=== PATIENT | female | born 1945 | race Two or more races ===

== ENCOUNTER 2016-05-05 14:37 | Observation (INO) | payer OTHER, MEDICARE ==
[2016-05-05] MEDS ORDERED: ALBUTEROL 3 ML DEYVIAL ONE (14:54)
[2016-05-05] MEDS ORDERED: ONDANSETRON 4 MG/2 ML VIAL ONE (14:54)
--- NOTE | 2016-05-05 14:54 | EDPHY ---
H & P Time Seen by Provider: 05/05/16 14:52 HPI/ROS: CHIEF COMPLAINT: Diarrhea, abdominal pain, vomiting. HISTORY OF PRESENT ILLNESS: The patient is a 70-year-old female who presents with diarrhea and abdominal pain. The diarrhea onset last night and subsided. This morning it returned with crampy abdominal pain and she also began to vomit. She became short of breath when the vomiting started. She admits associated fatigue. She denies congestion, rhinorrhea, fever. She has no previous pulmonary history. She denies chest pain, peripheral edema, recent antibiotic use, or other complaints. She was hypoxic at 83% on arrival. She took Zofran and Imodium at home to no effect. REVIEW OF SYSTEMS: A complete 10-point review of systems was performed and is negative except for those items mentioned in the HPI. Past Medical/Surgical History: Breast cancer/lumpectomy, knee surgery, hypertension, anxiety. Social History: Nonsmoker, currently moving houses. Smoking Status: Never smoked Physical Exam: General Appearance: Alert, no distress Eyes: Pupils equal and round, no conjunctival pallor or injection ENT, Mouth: Mucous membranes moist Neck: Normal inspection Respiratory: Lungs are clear to auscultation Cardiovascular: Regular rate and rhythm Gastrointestinal: Abdomen is soft and non-tender Neurological: A&O, nonfocal, normal gait Skin: Warm and dry, no rash Extremities: Nontender, no pedal edema Psychiatric: Mood and affect normal Constitutional: Initial Vital Signs Temperature (C) 36.4 C 05/05/16 14:57 Heart Rate 81 05/05/16 14:57 Respiratory Rate 16 05/05/16 14:57 Blood Pressure 138/76 H 05/05/16 14:57 O2 Sat (%) 96 05/05/16 14:57 O2 Delivery Mode Nasal Cannula O2 (L/minute) 2 Allergies/Adverse Reactions: codeine [Codeine] Allergy (Verified 08/20/11 16:44) erythromycin base [Erythromycin Base] Allergy (Verified 08/20/11 16:44) PLASTIC TAPE Allergy (Uncoded 08/20/11 16:44) Home Medications: Medication Instructions Recorded *Pharmacy Completed 08/20/11 08/20/11 Calcium Citrate [Citracal (OTC)] 600 mg PO DAILY 08/20/11 Cholecalciferol (Vitamin D3) 1,000 units PO DAILY 08/20/11 [Vitamin D] Herbals/Supplements 1 ea PO DAILY 08/20/11 LORazepam [Ativan 1 mg (RX)] 0.5 - 1 mg PO DAILY PRN 08/20/11 Lisinopril/Hydrochlorothiazide 1 each PO DAILY 08/20/11 [Lisinopril-Hctz 20-25 mg Tab] [place]-3 Fatty Acids/Fish Oil [Fish 1 each PO DAILY 08/20/11 Oil 1,000 mg Capsule] Sertraline HCl [Zoloft 100mg (RX)] 100 mg PO DAILY 08/20/11 Reconciled 08/21/11 Breast Ca Medicine 03/05/16 LORazepam [Ativan] 1 mg PO Q6-8PRN PRN #10 tab 03/05/16 Medical Decision Making - Diagnostics EKG Interpretation: EKG interpreted by me reveals normal sinus rhythm. Left anterior fascicular block. Borderline R wave progression, anterior leads. Diffuse T-wave flattening. Interpretation: Abnormal EKG. Imaging: Chest x-ray reviewed by me reveals no acute cardiopulmonary disease. Study: CTA of the chest. Indication: Elevated d-dimer, SOB. Results: No acute process. The study was read by the staff radiologist. ED Course/Re-evaluation: This patient presents with vomiting, diarrhea and shortness of breath. An IV was established and labs ordered. Chest x-ray, EKG ordered. Patient's chest x-ray is negative as interpreted by me. Her d-dimer is elevated and she remains hypoxic with oxygen saturation of 82% on room air, so a chest CTA was ordered. CT scan results discussed with the patient., unclear etiology hypoxia, still a concern for pulmonary embolism not visualized on CT scan. For this reason bilateral lower extremity ultrasounds were ordered. She may have aspirated the during an episode of vomiting, causing hypoxia as well. Any case, she will need to be admitted for acute hypoxia and dyspnea. 1724: Consulted with Dr. Montiel, hospitalist. He accepts admission to [facility]. Differential Diagnosis: Differential diagnosis includes though it is not limited to pneumonia, pulmonary embolism, acute coronary syndrome, empyema, bronchospasm. - Data Points Laboratory Results: Laboratory Results 05/05/16 15:05 05/05/16 15:05 05/05/16 05/05/16 05/05/16 15:05 15:05 15:05 WBC RBC Hgb Hct MCV MCH MCHC RDW Plt Count MPV Neut % (Auto) Lymph % (Auto) [place] % (Auto) Eos % (Auto) Baso % (Auto) Nucleat RBC Rel Count Absolute Neuts (auto) Absolute Lymphs (auto) Absolute Monos (auto) Absolute Eos (auto) Absolute Basos (auto) Absolute Nucleated RBC Immature Gran % Immature Gran # D-Dimer 1.38 ug/mLFEU H ug/mLFEU (0.00-0.50) Sodium Potassium Chloride Carbon Dioxide Anion Gap BUN Creatinine Estimated GFR Glucose Calcium Troponin I < 0.012 ng/mL ng/mL (0-0.034) NT-Pro-B Natriuret Pep 56 pg/mL pg/mL (0-125) Influenza A & B (PCR) NEGATIVE FOR FLU (NEGATIVE) 05/05/16 02 15:05 15:05 WBC 7.86 10^3/uL 10^3/uL (3.80-9.50) RBC 4.46 10^6/uL 10^6/uL (4.18-5.33) Hgb 13.7 g/dL g/dL (12.6-16.3) Hct 41.0 % % (38.0-47.0) MCV 91.9 fL fL (81.5-99.8) MCH 30.7 pg pg (27.9-34.1) MCHC 33.4 g/dL g/dL (32.4-36.7) RDW 13.5 % % (11.5-15.2) Plt Count 205 10^3/uL 10^3/uL (150-400) MPV 10.0 fL fL (8.7-11.7) Neut % (Auto) 89.2 % H % (39.3-74.2) Lymph % (Auto) 5.1 % L % (15.0-45.0) [place] % (Auto) 4.3 % L % (4.5-13.0) Eos % (Auto) 0.8 % % (0.6-7.6) Baso % (Auto) 0.3 % % (0.3-1.7) Nucleat RBC Rel Count 0.0 % % (0.0-0.2) Absolute Neuts (auto) 7.02 10^3/uL H 10^3/uL (1.70-6.50) Absolute Lymphs (auto) 0.40 10^3/uL L 10^3/uL (1.00-3.00) Absolute Monos (auto) 0.34 10^3/uL 10^3/uL (0.30-0.80) Absolute Eos (auto) 0.06 10^3/uL 10^3/uL (0.03-0.40) Absolute Basos (auto) 0.02 10^3/uL 10^3/uL (0.02-0.10) Absolute Nucleated RBC 0.00 10^3/uL 10^3/uL (0-0.01) Immature Gran % 0.3 % % (0.0-1.1) Immature Gran # 0.02 10^3/uL 10^3/uL (0.00-0.10) D-Dimer Sodium 140 mEq/L mEq/L (134-144) Potassium 4.0 mEq/L mEq/L (3.5-5.2) Chloride 106 mEq/L mEq/L (97-110) Carbon Dioxide 23 mEq/l mEq/l (22-31) Anion Gap 11 mEq/L mEq/L (8-16) BUN 25 mg/dL H mg/dL (7-23) Creatinine 0.9 mg/dL mg/dL (0.6-1.0) Estimated GFR > 60 Glucose 118 mg/dL H mg/dL (70-100) Calcium 9.6 mg/dL mg/dL (8.5-10.4) Troponin I NT-Pro-B Natriuret Pep Influenza A & B (PCR) Medications Given: Discontinued Medications Sodium Chloride (Ns) 1,000 mls @ 0 mls/hr IV ONCE ONE PRN Reason: Wide Open Stop: 05/05/16 15:22 Last Admin: 05/05/16 15:26 Dose: 1,000 mls Ondansetron HCl (Zofran) 4 mg IVP EDNOW ONE Stop: 05/05/16 15:22 Last Admin: 05/05/16 15:26 Dose: 4 mg Departure - Departure Disposition: [facility] Clinical Impression: Shortness of breath, Hypoxia Diarrhea Qualifiers: Diarrhea type: unspecified type Qualified Code(s): R19.7 - Diarrhea, unspecified Condition: Fair Referrals: Savanah Manley MD [Primary Care Provider] - As per Instructions Report Scribed for: Sunshine Myers Report Scribed by: Merritt Medrano Date of Report: 05/05/16 Time of Report: 14:54 Physician Review and Approval Statement: 05/05/16 14:54 Portions of this note were transcribed by a medical lead. I personally performed a history, physical exam, medical decision making, and confirmed accuracy of information the transcribed note.
--- NOTE | 2016-05-05 15:02 | CPEKG ---
Heart Rate: 81 RR Interval: 741 P-R Interval: 164 QRSD Interval: 90 QT Interval: 400 QTC Interval: 465 P [place]: 20 QRS [place]: -45 T Wave [place]: -16 EKG Severity - ABNORMAL ECG - EKG Impression: SINUS RHYTHM EKG Impression: LEFT ANTERIOR FASCICULAR BLOCK EKG Impression: BORDERLINE R WAVE PROGRESSION, ANTERIOR LEADS EKG Impression: Diffuse T-wave changes Electronically Signed By: Sunshine Myers 05-May-2016 20:41:45
[2016-05-05] MEDS ORDERED: NS 1,000 ML IV ONE (15:21)
[2016-05-05] MEDS ORDERED: ONDANSETRON 4 MG/2 ML VIAL IVP ONE (15:21)
[2016-05-05 15:26] LABS: % IMMATURE GRANULYOCYTES 0.3 % (0.0-1.1); ABSOLUTE IMMATURE GRANULOCYTES 0.02 10^3/uL (0.00-0.10); ADD DIFF? NO; ADD MORPH? NO; ADD SCAN? NO; ATYPICAL LYMPHOCYTE FLAG 0 (0-99); FRAGMENT RBC FLAG 0 (0-99); HEMOGLOBIN 13.7 g/dL (12.6-16.3); LEFT SHIFT FLG 0 (0-99); LIPEMIA HEMOLYSIS FLAG 80 (0-99); MEAN CELL HEMOGLOBIN 30.7 pg (27.9-34.1); MEAN CELL HEMOGLOBIN CONCENTR. 33.4 g/dL (32.4-36.7); MEAN CELL VOLUME 91.9 fL (81.5-99.8); PLATELET CLUMPS FLAG 0 (0-99); PLATELET COUNT 205 10^3/uL (150-400); RED BLOOD CELL COUNT 4.46 10^6/uL (4.18-5.33); RED CELL DISTRIBUTION WIDTH 13.5 % (11.5-15.2)
[2016-05-05 15:49] LABS: ANION GAP 11 mEq/L (8-16); CALCIUM 9.6 mg/dL (8.5-10.4); CARBON DIOXIDE 23 mEq/l (22-31); CHLORIDE 106 mEq/L (97-110); CREATININE 0.9 mg/dL (0.6-1.0); GLOMERULAR FILTRATION RATE > 60; GLUCOSE 118 mg/dL (70-100); SODIUM 140 mEq/L (134-144)
[2016-05-05] MEDS ORDERED: IOPAMIDOL (ISOVUE 370) 100 ML BTL IV ONE (16:11)
[2016-05-05 16:21] LABS: TROPONIN I < 0.012 ng/mL (0-0.034)
[2016-05-05] MEDS ORDERED: ONDANSETRON DISINTEGRATING 4 MG TAB PO PRN (17:54)
[2016-05-05] MEDS ORDERED: PROMETHAZINE HCL 25 MG/ML INJ IVP PRN (17:54)
[2016-05-05] MEDS ORDERED: ACETAMINOPHEN 325 MG TAB PO PRN (17:54)
[2016-05-05] MEDS ORDERED: D5W 1/2 NS W/ 20 KCl/L 1,000 ML IV SCH (18:00)
--- NOTE | 2016-05-05 18:20 | GHP ---
[f rep st] HISTORY AND PHYSICAL DATE OF ADMISSION: 05/05/2016 CHIEF COMPLAINT: Nausea, vomiting and diarrhea. HISTORY OF PRESENT ILLNESS: This is a 70-year-old female with a history of breast cancer, status po st mastectomy and treatment with chemotherapy and radiation which she finished about a year ago. Brandon woodward presented to the emergency department today with diarrhea that started last night followed by nume remigio bouts of vomiting that began today. The patient denies any bloody vomitus or bloody diarrhea. She has not had anything to eat or drink since last night. She denies any abdominal pain. She den ies any fevers or chills. She denies any sick contacts. She denies any recent foreign travel. On presentation to the emergency department she was noted to be hypoxemic with oxygen saturations in the 80s on room air. She denies any chest pain. She denies any wheezing. She denies any aspirati on of vomitus. PAST MEDICAL HISTORY: 1. 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 2. Breast cancer status post mastectomy, lymph node dissection and chemotherapy and radiation. PAST SURGICAL HISTORY: 1. Left mastectomy with lymph node dissection and reconstruction. 2. Bilateral total knee replacements. 3. Hysterectomy. HOME MEDICATIONS: Reviewed, refer to [facility] for details. ALLERGIES: Codeine and erythromycin. SOCIAL HISTORY: She denies any alcohol, tobacco, or illicit drug use. She has never been a smoker. FAMILY HISTORY: Reviewed and noncontributory. REVIEW OF SYSTEMS: Comprehensive 10-point review of systems was done and was negative except for as mentioned in the HPI. PHYSICAL EXAM: VITAL SIGNS: Blood pressure 144/80, pulse 77, respiratory rate 16, O2 saturation 99 % on 2 L and in the low 90s on room air during the time my exam. Temperature afebrile. GENERAL: N o acute distress. HEENT: Head normocephalic, atraumatic. Mouth: Moist mucous membranes. NECK: Supple. No lymphadenopathy. CARDIOVASCULAR: S1, S2. No JVD. PULMONARY: Lungs are clear. No wh eezes, rales, or rhonchi. Breath sounds are slightly diminished in the bilateral bases. ABDOMEN: Soft, nontender, nondistended. No guarding or rebound tenderness. Normoactive bowel sounds. EXTRE MITIES: No clubbing or cyanosis. NEURO: Cranial nerves 2-12 grossly intact. No focal motor or se nsory deficits. SKIN: Clear, no rashes. DIAGNOSTICS: WBC 7.8, hemoglobin 13.7, hematocrit 41, platelets 205. D-dimer elevated at 1.38. So dium 140, potassium 4, chloride 106, CO2 23, BUN 25, creatinine 0.9, glucose 118. Troponin was nega tive. BNP was within normal limits. Influenza A and B PCR was negative. Chest x-ray shows no obvi ous pneumonia or signs of aspiration. CT angio of the chest was done, the results are currently pen ding but the preliminary read was negative for PE. ASSESSMENT AND PLAN: This is a 70-year-old female presenting with: 1. Acute gastroenteritis, likely viral, versus food-borne illness. Not currently tolerating p.o. Plan: The patient will be started on a clear liquid diet which will be advanced as tolerated. Will order p.r.n. antiemetics as needed. The patient should be eligible for discharge when she is able to eat and drink and to see below. 2. Acute hypoxemic respiratory failure, likely due to atelectasis and decreased respiratory effort in the setting of nausea and vomiting versus possible acute aspiration pneumonitis which has not bee n seen on imaging, that seems to be improving. Plan: Currently the patient's saturations are in th e low 90s on room air but she has been reported to drop quite precipitously on room air on prior tri als in the emergency department. The patient will be further monitored for hypoxemia. DISPOSITION: At this time the patient will be placed on observation where she can be discharged taz e once her oxygen saturations are consistently above 90% and she is tolerating a regular diet. /[id number]/MODL
[2016-05-05] MEDS ORDERED: LORazepam 1 MG TAB PO PRN (19:10)
[2016-05-05] MEDS ORDERED: ANASTROZOLE 1 MG TAB PO SCH (21:00)
[2016-05-06 08:11] VITALS: TEMP 98.6
--- NOTE | 2016-05-06 08:41 | HOSPPROG ---
Hospitalist Progress Note Assessment/Plan: #Acute gasteroenteritis: #Acute hypoxemic resp failure Objective: Vital Signs Temp Pulse Resp BP Pulse Ox 37.0 C 64 16 122/57 H 92 05/06/16 08:00 05/06/16 08:00 05/06/16 08:00 05/06/16 08:00 05/06/16 08:35 05/05/16 05/06/16 05/07/16 05:59 05:59 05:59 Intake Total 1300 Balance 1300 ICD10 Worksheet Patient Problems: Problems Problem Status Onset Diarrhea Acute Hypoxia Acute Shortness of breath Acute Closed trimalleolar fracture Active Hypertensive disorder, systemic arterial Active
[2016-05-06] MEDS ORDERED: SERTRALINE HCL 100 MG TAB PO SCH (09:00)
[2016-05-06] MEDS ORDERED: ALPRAZolam 1 MG TAB PO SCH (09:00)
[2016-05-06 12:41] VITALS: BP 125/83; PULSE 70; RESP 18; O2SAT 94
--- NOTE | 2016-05-06 14:58 | GDS ---
[f rep st] DISCHARGE SUMMARY DISCHARGE DIAGNOSES: 1. Acute viral gastroenteritis. 2. Acute hypoxemic respiratory failure. 3. Benign hypertension. 4. Peripheral neuropathy. 5. History of breast cancer, status post mastectomy, lymph node dissection, chemotherapy, and radiation. HISTORY OF PRESENT ILLNESS: Patient is a 70-year-old female, with history of breast cancer, status post mastectomy and treatment with chemo and radiation. Finished a year ago. She presented to the emergency room with diarrhea, starting the day before, and numerous bouts of nonbloody emesis. Denies any blood in the diarrhea. She has not had anything to eat or drink in the past day. She reports her and another family member with similar symptoms. On presentation to the ER she was noted to be hypoxemic, with oxygen saturation in the 80s. She denies chest pain, shortness of breath. HOSPITAL COURSE: 1. Acute gastroenteritis: suspect this is viral; had several sick contacts at home. She is now currently eating and drinking without issue. Electrolytes WNL. Recommended plenty of fluids at home. Follow up with her PCP. 2. Acute hypoxemic respiratory failure. Suspect this is secondary to atelectasis. She was 88% to 89% ambulatory on room air. She does not need oxygen at discharge. DISPOSITION: Patient is stable for discharge. MEDICATIONS: No medications. FOLLOWUP: With her PCP in 1-2 weeks. /[id number]/MODL MTDD
== END 2016-05-06 14:53 | disposition home or self-care (01) ==
LOC: F1N 21:29
PROVIDERS: ADMIT Family Medicine; ATTEND Family Medicine
DX: K52.9 Noninfective gastroenteritis and colitis, unspecified (principal); J96.01 Acute respiratory failure with hypoxia; I10 Essential (primary) hypertension; Z85.3 Personal history of malignant neoplasm of breast; G62.0 Drug-induced polyneuropathy; J98.11 Atelectasis; F41.9 Anxiety disorder, unspecified; I27.2 Other secondary pulmonary hypertension; Z90.12 Acquired absence of left breast and nipple; Z96.653 Presence of artificial knee joint, bilateral; Z92.21 Personal history of antineoplastic chemotherapy
CPT/HCPCS: 71020; 71275; 93005; G0378; J2405; J2550; Q9967; 96374

== ENCOUNTER 2016-11-04 10:11 | Emergency (ER) | payer OTHER, MEDICARE ==
[2016-11-04 10:18] VITALS: RESP 18; TEMP 98.2
[2016-11-04] MEDS ORDERED: fentaNYL 100 MCG/2 ML INJ IVP ONE (10:35)
[2016-11-04] MEDS ORDERED: KETOROLAC 30 MG/1 ML SDV IVP ONE (10:35)
[2016-11-04] MEDS ORDERED: LORazepam 1 MG TAB PO ONE (10:35)
--- NOTE | 2016-11-04 10:37 | EDPHY ---
H & P Stated Complaint: Rolled off bed this morning;pain R ribs,shoulder, no LOC Time Seen by Provider: 11/04/16 10:28 HPI/ROS: CHIEF COMPLAINT: Right chest and abdominal pain post rolling off of bed HISTORY OF PRESENT ILLNESS: 71-year-old female with no anticoagulant use arrives via private vehicle with family member complaining of right humerus pain , right shoulder, right rib and right upper abdominal pain after she accidentally rolled out of bed at 5:30 a.m. this morning onto a basket. She was able to get herself back up. There are no prolonged periods of mobility on the floor. No head injury. No alcohol or drug use. This was a mechanical non syncopal episode. No amnesia. Full recollection of all events. PRIMARY CARE PROVIDER: REVIEW OF SYSTEMS: A ten point review of systems was performed and is negative with the exception of the items mentioned in the HPI PAST MEDICAL/SURGICAL HISTORY: no anticoagulant use, SOCIAL HISTORY: denies alcohol use at time of incident. Lives with and family members PHYSICAL EXAM 1) GENERAL: Well-developed, well-nourished, alert and oriented. Appears to be in no acute distress. Answering questions appropriately. 2) HEAD: Normocephalic, atraumatic 3) HEENT: Pupils equal, round, reactive to light bilaterally. Negative [place]. Nasopharynx, oropharynx, clear. No deformity or angulation of nose. No septal hematoma. No rhinorrhea. No oral trauma. Ears bilaterally with normal tympanic membranes. No hemotympanum. No fluid or blood in the external auditory canal. No raccoon eyes. No Martinez sign. Teeth are normally aligned with no gross malocclusion, TMJ bilaterally nontender, facial bones nontender including the zygomatic arch, maxilla mandible. 4) NECK: No cervical collar is on. Posterior cervical spine is nontender, no stepoff, no effusion. Full range of motion which does not elicit any midline cervical spine pain, no posterior midline tenderness, no step-off. Cervical collar is on.Cervical collar is removed while holding inline traction and patient is unable to completely differentiate between true midline pain versus just lateral of midline pain.Cervical collar is replaced at that point.and patient has no complaints of midline cervical pain, no effusion noted, trachea midline, no JVD. 5) LUNGS: Clear to auscultation bilaterally, no wheezes, no rhonchi, no retractions. No obvious signs of trauma. Positive chest wall pain in the mid axillary line approximately rib 7. No crepitus. No flaring, no grunting. Moving symmetrically. No crepitus. 6) HEART: Regular rate and rhythm, 7) ABDOMEN: tender to palpation right upper quadrant no visible signs of trauma , no focal tenderness, no peritoneal signs, no signs of trauma, no ecchymosis 8) MUSCULOSKELETAL: Tender to palpation right shoulder, right mid humerus. No deformity no angulation intact skin. Soft compartments. Distal neurovascular status is intact with brisk pulses and capillary refill. Otherwise, Moving all extremities, no focal areas of tenderness, no obvious trauma. 9) BACK: No midline vertebral tenderness, no fluctuance, no step-off, no obvious trauma, no visual or palpable abnormality. 10) SKIN: No laceration. No abrasion DIFFERENTIAL DIAGNOSIS: [in no particular include but limited to rib fracture, rib contusion, pneumothorax, hemothorax, liver laceration - Personal History Current Tetanus Diphtheria and Acellular Pertussis (TDAP): Yes Tetanus Vaccine Date: UNSURE - Medical/Surgical History Hx Asthma: No Hx Chronic Respiratory Disease: No Hx Diabetes: No Hx Cardiac Disease: No Hx Renal Disease: No Hx Cirrhosis: No Hx Alcoholism: No Hx HIV/AIDS: No Hx Splenectomy or Spleen Trauma: No Other PMH: BREAST CA, LUMPECTOMY, KNEE SURGERY - Social History Smoking Status: Never smoked Constitutional: Initial Vital Signs Temperature (C) 36.8 C 11/04/16 10:13 Heart Rate 67 11/04/16 10:13 Respiratory Rate 18 11/04/16 10:13 Blood Pressure 134/72 H 11/04/16 10:13 O2 Sat (%) 92 11/04/16 10:13 O2 Delivery Mode Room Air O2 (L/minute) 2 Allergies/Adverse Reactions: codeine [Codeine] Allergy (Verified 11/04/16 10:12) erythromycin base [Erythromycin Base] Allergy (Verified 11/04/16 10:12) PLASTIC TAPE Allergy (Uncoded 08/20/11 16:44) Home Medications: Medication Instructions Recorded Cholecalciferol (Vitamin D3) 1,000 units PO DAILY 08/20/11 [Vitamin D3] LORazepam [Ativan (*)] 1 mg PO DAILY PRN 08/20/11 Lisinopril/Hydrochlorothiazide 0.5 tab PO DAILY 08/20/11 [Lisinopril-Hctz 20-25 mg Tab] [place]-3 Fatty Acids/Fish Oil [Fish 1,500 mg PO DAILY 08/20/11 Oil 1,000 mg Capsule] Sertraline HCl [Zoloft 100mg (*)] 100 mg PO DAILY 08/20/11 ALPRAZOLAM 1 mg PO DAILY 05/05/16 Anastrozole 1 mg PO HS 05/05/16 Herbals/Supplements -Info Only 1 ea PO DAILY 05/05/16 Vitamin B Complex [Super B-50 1 each PO DAILY 05/05/16 Complex] Hydrocodone/APAP 5/325 [[place] 0.5 tab PO Q6 PRN #10 tab 11/04/16 5/325 (RX)] Ondansetron Odt [Zofran Odt] 4 mg PO Q4PRN PRN #10 tab 11/04/16 Medical Decision Making - Diagnostics Imaging Results: Imaging Impressions Humerus X-Ray 11/04/16 10:34 Impression: Negative. No acute fracture. Shoulder X-Ray 11/04/16 10:34 Impression: Negative. No acute fracture or dislocation. Abdomen CT 11/04/16 10:35 Impression: Nothing acute. Findings and recommendations discussed with Leslie Monroy at 11:30 hour, . Final report concurs with initial preliminary interpretation. Chest CT 11/04/16 10:35 Impression: Nothing acute. Images reviewed myself Imaging: Discussed imaging studies w/ order caller Radiologist ED Course/Re-evaluation: 1230 p.m.: patient was re-evaluated with serial exams. Discussed her imaging results showing no evidence of shoulder or humerus fracture, no evidence of rib fracture, pneumothorax, hemothorax or solid organ injury. She is feeling improvement in symptoms after analgesia in the ER. Plan will be discharge home. I offered admission however she prefers to go home. She has her own incentive spirometer home which I recommend she use every hour while awake. She will be discharged, recommend she follow up with PCP Dr. Manley 1 day for recheck. If any point she feels comfortable being at home or develops dyspnea, chest pain, to return to ER immediately for re-evaluation. - Data Points Laboratory Results: 11/04/16 11/04/16 10:41 10:41 POC Hgb 13.3 gm/dL gm/dL 13.3 gm/dL gm/dL (12.6-16.3) (12.6-16.3) POC Hct 39 % % 39 % % (38-47) (38-47) POC Sodium 142 mEq/L mEq/L 142 mEq/L mEq/L (134-144) (134-144) POC Potassium 3.9 mEq/L mEq/L 3.9 mEq/L mEq/L (3.3-5.0) (3.3-5.0) POC Chloride 104 mEq/L mEq/L 104 mEq/L mEq/L (97-110) (97-110) POC BUN 22 mg/dL mg/dL 22 mg/dL mg/dL (7-23) (7-23) POC Creatinine 1.0 mg/dL mg/dL 1.0 mg/dL mg/dL (0.6-1.0) (0.6-1.0) POC Glucose 118 mg/dL H mg/dL 118 mg/dL H mg/dL (70-100) (70-100) Medications Given: Discontinued Medications Fentanyl (Sublimaze) 100 mcg IVP EDNOW ONE Stop: 11/04/16 10:36 Last Admin: 11/04/16 11:00 Dose: 100 mcg Ketorolac Tromethamine (Toradol) 15 mg IVP EDNOW ONE Stop: 11/04/16 10:36 Last Admin: 11/04/16 11:00 Dose: 15 mg Lorazepam (Ativan) 0.5 mg PO EDNOW ONE Stop: 11/04/16 10:36 Last Admin: 11/04/16 11:10 Dose: Not Given Lorazepam (Ativan Injection) 0.5 mg IVP EDNOW ONE Stop: 11/04/16 10:54 Last Admin: 11/04/16 10:59 Dose: 0.5 mg Ondansetron HCl (Zofran) 4 mg IVP EDNOW ONE Stop: 11/04/16 11:39 Last Admin: 11/04/16 11:44 Dose: 4 mg Point of Care Test Results: 08/17/17 08/17/17 10:41 10:41 POC Sodium 142 142 POC Potassium 3.9 3.9 POC Chloride 104 104 POC BUN 22 22 POC Creatinine 1.0 1.0 POC Glucose 118 H 118 H Departure - Departure Disposition: Home, Routine, Self-Care Clinical Impression: Fall from bed Qualifiers: Encounter type: initial encounter Qualified Code(s): W06.XXXA - Fall from bed, initial encounter Contusion of rib Qualifiers: Encounter type: initial encounter Laterality: right Qualified Code(s): S20.211A - Contusion of right front wall of thorax, initial encounter Condition: Good Instructions: Rib Contusion (ED) Additional Instructions: Return to the emergency room immediately if you develop shortness of breath, worsening pain or any other symptoms that concern you. Use your incentive spirometer once every hour while awake. Do not wear your chest binder Referrals: Savanah Manley MD [Primary Care Provider] - 1 day without fail Prescriptions: Hydrocodone/APAP 5/325 [[place] 5/325 (RX)] 0.5 tab PO Q6 PRN #10 tab PRN Reason: Pain, Severe Ondansetron Odt [Zofran Odt] 4 mg PO Q4PRN PRN #10 tab PRN Reason: Nausea
[2016-11-04] MEDS ORDERED: LORazepam 2 MG/ML INJ IVP ONE (10:53)
[2016-11-04] MEDS ORDERED: IOPAMIDOL (ISOVUE-300) 100 ML BTL ONE (10:54)
[2016-11-04] MEDS ORDERED: ONDANSETRON 4 MG/2 ML VIAL IVP ONE (11:38)
[2016-11-04] MEDS ORDERED: ONDANSETRON 4 MG/2 ML VIAL ONE (11:39)
[2016-11-04 12:26] VITALS: BP 128/68; PULSE 55; O2SAT 93
== END 2016-11-04 12:59 | disposition home or self-care (01) ==
DX: S20.211A Contusion of right front wall of thorax, initial encounter (principal); Z85.3 Personal history of malignant neoplasm of breast; W06.XXXA Fall from bed, initial encounter
CPT/HCPCS: 71260; 73030; 73060; 74177; 96374; 96375; 99285; J1885; J2060; J2405; J3010; Q9967; 82947-QW

== ENCOUNTER → 2017-02-18 | Outpatient (CLI) | payer OTHER, MEDICARE | LOC: FIMAGING 14:48 | PROVIDERS: ATTEND Internal Medicine Hematology & Oncology | DX: Z12.31 Encounter for screening mammogram for malignant neoplasm of breast (principal); Z85.3 Personal history of malignant neoplasm of breast | CPT/HCPCS: G0202-52 ==

== ENCOUNTER 2017-09-04 18:12 | Emergency (ER) | payer OTHER, MEDICARE ==
[2017-09-04] MEDS ORDERED: NS 1,000 ML IV ONE (19:04)
[2017-09-04] MEDS ORDERED: ONDANSETRON 4 MG/2 ML VIAL IVP ONE (19:05)
--- NOTE | 2017-09-04 19:06 | EDPHY ---
H & P Stated Complaint: PT. states dizziness x2 days,dehydrated this past Tuesday, chills last night Time Seen by Provider: 09/04/17 18:16 HPI/ROS: 72-year-old female presents complaining of dizziness. Two days ago she spent most of the day moving and her family states she became very dehydrated as well as constipated. It was extremely hot that day, high 90s. The constipation has resolved and she has attempted oral rehydration but has had several episodes of emesis and continues to have dizziness specifically when standing. No chest pain, no headache, no shortness of breath . She has had some runny nose as well as mucus production that she feels is her seasonal allergies. Review of systems As per HPI General no fever no chills positive fatigue HEENT no eye pain no eye discharge. No eye redness, no sore throat Respiratory no cough, no shortness of breath Cardiac no chest pain, no peripheral edema GI no abdominal pain, no diarrhea, no constipation, positive nausea positive vomiting no flank pain, no hematuria, no dysuria Musculoskeletal no myalgias, no joint pain Heme no easy bruising, no easy bleeding Endo no polyuria, no polydipsia Skin no rashes, no pruritus Neuro no syncope, positive dizziness, no headaches Psych is no suicidal ideation, no homicidal ideation Source: Patient, Family - Personal History Current Tetanus Diphtheria and Acellular Pertussis (TDAP): Yes Tetanus Vaccine Date: 2015 - Medical/Surgical History Hx Asthma: No Hx Chronic Respiratory Disease: No Hx Diabetes: No Hx Cardiac Disease: Yes Hx Renal Disease: No Hx Cirrhosis: No Hx Alcoholism: No Hx HIV/AIDS: No Hx Splenectomy or Spleen Trauma: No Other PMH: MEd hx-depression/anxiety,Breast CA,Htn. Surg-knee surg bilat,left ankle,lumpectomy,mastectomy with reconstruction,hyst - Family History Significant Family History: No pertinent family hx - Social History Smoking Status: Never smoked Alcohol Use: None Drug Use: None - Physical Exam Exam: 72-year-old female alert and oriented no acute distress nontoxic appearance afebrile HEENT atraumatic normocephalic, extraocular muscles intact, anicteric Oropharynx negative for erythema negative exudate, tolerating her own secretions Neck supple no meningismus Lungs clear to auscultation bilaterally Heart regular rate and rhythm without murmur rub or gallop Abdomen nondistended normoactive bowel sounds soft nontender Back no CVA tenderness, no step-offs, no spinal tenderness Extremities no cyanosis clubbing or edema Neuro alert and oriented, no focal deficits Constitutional: Initial Vital Signs Temperature (C) 36.7 C 18 18:31 Heart Rate 63 18 18:31 Respiratory Rate 16 18 18:31 Blood Pressure 128/51 H 09/04/17 18:31 O2 Sat (%) 94 09/04/17 18:31 O2 Delivery Mode Room Air Allergies/Adverse Reactions: codeine [Codeine] Allergy (Verified 09/04/17 18:29) erythromycin base [Erythromycin Base] Allergy (Verified 09/04/17 18:29) PLASTIC TAPE Allergy (Uncoded 09/04/17 18:29) Home Medications: Medication Instructions Recorded Cholecalciferol (Vitamin D3) 1,000 units PO DAILY 08/20/11 [Vitamin D3] LORazepam [Ativan (*)] 1 mg PO DAILY PRN 08/20/11 Lisinopril/Hydrochlorothiazide 0.5 tab PO DAILY 08/20/11 [Lisinopril-Hctz 20-25 mg Tab] [place]-3 Fatty Acids/Fish Oil [Fish 1,500 mg PO DAILY 08/20/11 Oil 1,000 mg Capsule] Sertraline HCl [Zoloft 100mg (*)] 100 mg PO DAILY 08/20/11 Anastrozole 1 mg PO HS 05/05/16 Herbals/Supplements -Info Only 1 ea PO DAILY 05/05/16 Vitamin B Complex [Super B-50 1 each PO DAILY 05/05/16 Complex] Ondansetron Odt [Zofran Odt] 4 mg PO Q4PRN PRN #10 tab 11/04/16 Medical Decision Making ED Course/Re-evaluation: Patient seen and evaluated for dizziness . Physical exam unremarkable Labs CBC, BMP, troponin, TSH, magnesium all within normal limits EKG-normal sinus rhythm rate 59, left axis deviation, nonspecific ST T wave changes EKG similar to last several years of EKGs Patient given 1 L normal saline, ondansetron 4 mg IV push Patient feeling markedly improved, tolerating p.o. Impression Dizziness Likely secondary to heat exhaustion, fatigue Plan Discharge home Rest, drink plenty of fluids Follow up with the primary care physician Differential Diagnosis: Differential diagnosis considered but not limited to: Fluid use dehydration, heat exhaustion, electrolyte abnormality, hypothyroidism , hypomagnesemia, anemia - Data Points Laboratory Results: Laboratory Results 09/04/17 19:12 09/04/17 09/04/17 09/04/17 19:34 19:29 19:12 WBC 6.75 10^3/uL 10^3/uL (3.80-9.50) RBC 4.10 10^6/uL L 10^6/uL (4.18-5.33) Hgb 12.6 g/dL g/dL (12.6-16.3) Hct 38.7 % % (38.0-47.0) MCV 94.4 fL fL (81.5-99.8) MCH 30.7 pg pg (27.9-34.1) MCHC 32.6 g/dL g/dL (32.4-36.7) RDW 13.5 % % (11.5-15.2) Plt Count 253 10^3/uL 10^3/uL (150-400) MPV 10.3 fL fL (8.7-11.7) Neut % (Auto) 70.9 % % (39.3-74.2) Lymph % (Auto) 19.1 % % (15.0-45.0) Shannon % (Auto) 7.0 % % (4.5-13.0) Eos % (Auto) 2.2 % % (0.6-7.6) Baso % (Auto) 0.4 % % (0.3-1.7) Nucleat RBC Rel Count 0.0 % % (0.0-0.2) Absolute Neuts (auto) 4.78 10^3/uL 10^3/uL (1.70-6.50) Absolute Lymphs (auto) 1.29 10^3/uL 10^3/uL (1.00-3.00) Absolute Monos (auto) 0.47 10^3/uL 10^3/uL (0.30-0.80) Absolute Eos (auto) 0.15 10^3/uL 10^3/uL (0.03-0.40) Absolute Basos (auto) 0.03 10^3/uL 10^3/uL (0.02-0.10) Absolute Nucleated RBC 0.00 10^3/uL 10^3/uL (0-0.01) Immature Gran % 0.4 % % (0.0-1.1) Immature Gran # 0.03 10^3/uL 10^3/uL (0.00-0.10) POC Sodium 139 mEq/L mEq/L (135-145) POC Potassium 3.6 mEq/L mEq/L (3.3-5.0) POC Chloride 100.0 mEq/L mEq/L (97-110) POC Total CO2 27 mEq/L mEq/L (22-31) POC BUN 14 mg/dL mg/dL (7-23) POC Creatinine 0.9 mg/dL mg/dL (0.6-1.0) POC Glucose 121 mg/dL H mg/dL (70-100) POC Calcium 9.5 mg/dL mg/dL (8.5-10.4) Magnesium POC Troponin I 0.00 ng/mL ng/mL (0.00-0.08) TSH 09/04/17 19:12 WBC RBC Hgb Hct MCV MCH MCHC RDW Plt Count MPV Neut % (Auto) Lymph % (Auto) [place] % (Auto) Eos % (Auto) Baso % (Auto) Nucleat RBC Rel Count Absolute Neuts (auto) Absolute Lymphs (auto) Absolute Monos (auto) Absolute Eos (auto) Absolute Basos (auto) Absolute Nucleated RBC Immature Gran % Immature Gran # POC Sodium POC Potassium POC Chloride POC Total CO2 POC BUN POC Creatinine POC Glucose POC Calcium Magnesium 2.1 mg/dL mg/dL (1.6-2.3) POC Troponin I TSH 2.170 uIU/mL uIU/mL (0.465-4.680) Medications Given: Discontinued Medications Sodium Chloride (Ns) 1,000 mls @ 0 mls/hr IV ONCE ONE PRN Reason: Wide Open Stop: 09/04/17 19:05 Last Admin: 09/04/17 19:10 Dose: 1,000 mls Ondansetron HCl (Zofran) 4 mg IVP EDNOW ONE Stop: 09/04/17 19:06 Last Admin: 09/04/17 19:11 Dose: 4 mg Point of Care Test Results: Chemistry 09/04/17 09/04/17 19:34 19:29 POC Sodium 139 mEq/L mEq/L (135-145) POC Potassium 3.6 mEq/L mEq/L (3.3-5.0) POC Chloride 100.0 mEq/L mEq/L (97-110) POC Total CO2 27 mEq/L mEq/L (22-31) POC BUN 14 mg/dL mg/dL (7-23) POC Creatinine 0.9 mg/dL mg/dL (0.6-1.0) POC Glucose 121 mg/dL H mg/dL (70-100) POC Calcium 9.5 mg/dL mg/dL (8.5-10.4) POC Troponin I 0.00 ng/mL ng/mL (0.00-0.08) Departure - Departure Disposition: Home, Routine, Self-Care Clinical Impression: Dehydration after exertion, Heat exhaustion Condition: Good Instructions: Dehydration (ED), Heat Exhaustion (ED) Referrals: Carley Quezada MD [Primary Care Provider] - As per Instructions
--- NOTE | 2017-09-04 19:15 | CPEKG ---
Heart Rate: 59 RR Interval: 1017 P-R Interval: 188 QRSD Interval: 100 QT Interval: 436 QTC Interval: 432 P [place]: 17 QRS [place]: -36 T Wave [place]: -18 EKG Severity - BORDERLINE ECG - EKG Impression: SINUS RHYTHM EKG Impression: LEFT AXIS DEVIATION EKG Impression: BORDERLINE T ABNORMALITIES, DIFFUSE LEADS Electronically Signed By: Preston Deng 06-Sep-2017 08:44:14
[2017-09-04 20:22] LABS: PLATELET COUNT 253 10^3/uL (150-400)
[2017-09-04 21:31] VITALS: BP 161/80
== END 2017-09-04 21:31 | disposition home or self-care (01) ==
LOC: CED 18:12
DX: E86.0 Dehydration (principal); T67.5XXA Heat exhaustion, unspecified, initial encounter; I10 Essential (primary) hypertension; Z85.3 Personal history of malignant neoplasm of breast
CPT/HCPCS: 93005; 96361; 96374; 99284; J2405; 80048-PO; 84484-PO

== ENCOUNTER → 2018-02-03 | Outpatient (CLI) | payer OTHER, MEDICARE | LOC: FIMAGING 10:31 | PROVIDERS: ATTEND Nurse Practitioner | DX: Z13.820 Encounter for screening for osteoporosis (principal); M81.0 Age-related osteoporosis without current pathological fracture; N95.8 Other specified menopausal and perimenopausal disorders; Z85.3 Personal history of malignant neoplasm of breast ==

== ENCOUNTER → 2018-02-25 | Outpatient (CLI) | payer OTHER, MEDICARE | LOC: FIMAGING 12:55 | PROVIDERS: ATTEND Internal Medicine Hematology & Oncology | DX: Z12.31 Encounter for screening mammogram for malignant neoplasm of breast (principal); Z85.3 Personal history of malignant neoplasm of breast; Z90.12 Acquired absence of left breast and nipple ==